=== PATIENT | male | born 1980 | race Hispanic/Latino ===

== ENCOUNTER 2023-09-10 21:20 | Emergency (ER) | payer SELFPAY ==
[2023-09-10] MEDS ORDERED: Proparacaine 0.5% Opth 15 ML BOT ONE (23:26)
[2023-09-10] MEDS ORDERED: Fluorescein Opthalmic Strip ONE (23:28)
[2023-09-11] MEDS ORDERED: Moxifloxacin 0.5% Opth Drop 3 ML BOT R EYE SCH (02:00)
== END 2023-09-11 01:36 | disposition short-term general hospital (02) ==
LOC: ERS 21:20
DX: H16.001 Unspecified corneal ulcer, right eye (principal); H57.11 Ocular pain, right eye
CPT/HCPCS: 99284